=== PATIENT | male | born 1995 | race Caucasian/White ===

== ENCOUNTER 2020-10-12 08:16 | Day surgery (SDC) | payer OTHER ==
[2020-10-12] MEDS ORDERED: Piperacillin/Tazobactam 3.375 GM VIAL ONE (09:19)
[2020-10-12] MEDS ORDERED: Sodium Chloride 0.9% 100 ML ONE (09:19)
[2020-10-12] MEDS ORDERED: Fentanyl 100 MCG/2 ML VIAL ONE ×4 (09:29→10:30)
[2020-10-12] MEDS ORDERED: Bupivacaine 0.25% HCL 30 ML VIAL ONE (10:08)
[2020-10-12] MEDS ORDERED: Lidocaine 1% w/Epinephrine 1:100K 30 ML VIAL ONE (10:08)
[2020-10-12] MEDS ORDERED: Midazolam HCl 2 mg/2 ml Vial ONE ×2 (10:14→10:15)
[2020-10-12] MEDS ORDERED: PROPOFOL 200 MG/20 ML VIAL ONE (10:18)
[2020-10-12] MEDS ORDERED: Rocuronium Bromide 10 MG/ML (10ML VIAL) ONE (10:18)
[2020-10-12] MEDS ORDERED: Ondansetron PF 4 MG/2 ML Vial ONE (10:18)
[2020-10-12] MEDS ORDERED: Lidocaine 1% PF 5 ML VIAL ONE (10:18)
[2020-10-12] MEDS ORDERED: PHENYLEPHRINE-NS 100 MCG/ML 10 ML SYRINGE ONE (10:18)
[2020-10-12] MEDS ORDERED: Dexamethasone 20 MG/5 ML VIAL ONE (10:18)
[2020-10-12] MEDS ORDERED: Ketorolac Tromethamine 30 MG/ML VIAL ONE (10:18)
[2020-10-12] MEDS ORDERED: SUGAMMADEX SODIUM 200 MG/2 ML VIAL ONE ×2 (10:30→11:13)
== END 2020-10-12 14:05 | disposition home or self-care (01) ==
LOC: SDC 08:16
PROVIDERS: ATTEND Surgery
PROC: 0DTJ4ZZ Resection of Appendix, Percutaneous Endoscopic Approach (ICD-10-PCS; principal; 2020-10-12)
DX: K35.31 Acute appendicitis with localized peritonitis and gangrene, without perforation (principal); K38.8 Other specified diseases of appendix; E66.9 Obesity, unspecified; Z79.899 Other long term (current) drug therapy; Z88.8 Allergy status to other drugs, medicaments and biological substances
CPT/HCPCS: 87070; 87077; 87186; 87205; 88304; J1100; J1885; J2250; J2405; J2543; J2704; J3010; J3490; S0020